=== PATIENT | male | born 1975 | race African-American/Black ===

== ENCOUNTER 2017-04-25 10:59 | Emergency (ER) | payer SELFPAY ==
[2017-04-25 11:07] VITALS: BP 133/77; BMI 29.5
--- NOTE | 2017-04-25 11:10 | DR.MBACK ---
HPI - Time Seen Time seen: 11:30 - PCP Primary Care Physician: corona - HPI Comment HPI Comment: LOWER BACK PAIN AND HEMATURIA TIMES 2 DAYS. NO FEVER OR DYSURIA. PAIN SIMILAR TO WHEN HE PREVIOUSLY HAD KIDNEY STONE. - Complaint Chief Complaint Doctors Comments: LOWER BACK PAIN AND BLOOD IN URINE TIMES 2 DAYS. Chief Complaint:: "PT STATES I HAD BLOOD IN MY URINE TIMES 2 DAYS AND MY LOWER BACK HAS BEEN KILLING ME " Self Treatment fo Chief Complaint: 0 HOME TX.. - Reviewed Nurses Notes Review: Yes - Source History Provided: Patient - Mode of Arrival Mode of Arrival: Ambulatory - Timing Onset of Chief Complaint: 04/23/17 - Duration Duration: Constant Duration: Days - Location Back Pain Location: Lumbar Radiation To: None - Severity Severity: Moderate - Quality Quality: Aching, Sharp - Context Onset: Spontaneous History of: None - Modifying Factors Worsened By: Twisting - Associated Signs and Symptoms Back Pain Symptoms: None Weakness: None PMH - PMH Past Medical History: No Past Surgical History: No - Family History History of Family Medical Conditions: Yes Family Medical History: Diabetes Mellitus, Hypertension - Social History Does patient currently use any type of tobacco product: Yes Have you used tobacco products in the last 12 months: Yes Type of Tobacco Use: Cigarettes How many years tobacco product used: 20 Does any household member use tobacco: No Alcohol Use: None Do you use any recreational Drugs:: No Lives With: Family Lives Where: Home - infectious screening In the last 2 months have you had wt loss of >10#?: NO Have you had fever, night sweats or hemotysis?: No Have you traveled outside the country in the last 6 months?: No Isolation: Standard ROS - Review of Systems Constitutional: No Symptoms Reported Eyes: No Symptoms Reported ENTM: No Symptoms Reported Respiratoy: No Symptoms Reported Cardiovascular: No Symptoms Reported Gastrointestinal/Abdominal: No Symptoms Reported Genitourinary: Hematuria Neurological: No Symptoms Reported Musculoskeletal: Back Pain, Back Integumentary: No Symptoms Reported Hematologic/Lymphatic: No Symptoms Reported Endocrine: No Symptoms Reported All Other Systems: Reviewed and Negative PE - Vital Signs Vitals: Temperature 97.6 F Pulse Rate 78 Respiratory Rate 22 Blood Pressure 133/77 O2 Sat by Pulse Oximetry 98 - General Limitations: No Limitations General Appearance: Alert - Head Head Exam: Normal Inspection - Eyes Eye exam: Normal Appearance - ENT ENT Exam: Normal External Ear Exam - Chest Chest Inspection: Symmetric Chest Wall Rise - Respiratory Respiratory Exam: Normal Lung Sounds Bilat Respiratory Exam: Bilateral Clear to Auscultation - Cardiovascular Cardiovascular Exam: Regular Rate, Normal Rhythm, Normal Heart Sounds - Abdominal Exam Abdominal Exam: Normal Bowel Sounds, Soft. negative: Tenderness - Rectal Rectal Exam: Deferred - Genitourinary Exam: Male: Deferred - Extremities Extremities Exam: Normal Inspection - Back Back Exam: Normal Inspection - Neurological Neurological Exam: Alert, Oriented X3 - Psychiatric Psychiatric Exam: Normal Affect, Normal Mood - Skin Skin Exam: Normal Color MDM - Differential Diagnosis Differential Diagnosis: DJD, Musculoskeletal Pain, Strain, Urolithiasis (UTI) Course - Treatment Treatment: SEE ORDERS - Education/Counseling Education/Counseling: Patient, Education Educated On: Treatment, Diagnosis ROR - Labs Reviewed Laboratory: Specimen Type Clean catch urine 04/25/17 11:31 Urine Color Pale yellow (YELLOW) 04/25/17 11:31 Urine Appearance Clear (CLEAR) 04/25/17 11:31 Urine pH 7.0 (5.0 - 8.0) 04/25/17 11:31 Ur Specific [place] 1.010 (1.000-1.030) 04/25/17 11:31 Urine Protein Negative (NEGATIVE) 04/25/17 11:31 Urine Glucose (UA) Negative (NEGATIVE) 04/25/17 11:31 Urine Ketones Negative (NEGATIVE) 04/25/17 11:31 Urine Occult Blood Negative (NEGATIVE) 04/25/17 11:31 Urine Nitrite Negative (NEGATIVE) 04/25/17 11:31 Urine Bilirubin Negative (NEGATIVE) 04/25/17 11:31 Urine Urobilinogen Normal (NORMAL) 04/25/17 11:31 Ur Leukocyte Esterase Negative (NEGATIVE) 04/25/17 11:31 Urine RBC None seen /HPF (NEGATIVE) 04/25/17 11:31 Urine WBC None seen /HPF (NEGATIVE) 04/25/17 11:31 Ur Squamous Epith Cells Rare /HPF (NEGATIVE) 04/25/17 11:31 Urine Bacteria Negative /HPF (NEGATIVE) 04/25/17 11:31 Ur Culture Indicated? No/not indicated 04/25/17 11:31 - XRAY XRAY Interpreted by: Radiologist - Diagnosis Discharge Problem: Urinary tract stones, Hematuria Back strain Qualifiers: Encounter type: initial encounter Qualified Code(s): S39.012A - Strain of muscle, fascia and tendon of lower back, initial encounter - Discharge Plan Disposition: 01 HOME, SELF-CARE Condition: Stable Prescriptions: Cyclobenzaprine HCl [FLEXERIL 10 MG *] 10 mg PO TID PRN #20 tab PRN Reason: Ibuprofen [MOTRIN TAB 600 MG *] 600 mg PO TID PRN #20 tab PRN Reason: Pain/Inflammation - Follow ups/Referrals Follow ups/Referrals: NFD,None [Primary Care Provider] - 3 days ZANE SALMON [STAFF PHYSICIAN] - 3 days - Instructions Instructions: Hematuria, Adult, Back Pain, Adult, [id number] Additional Instructions: RETURN TO ED IF WORSE.. SEE UROLOGIST FOR FOLLOW UP FOR ENLARGE PROSTATE AND BLOOD IN URINE.
[2017-04-25 11:43] LABS: BILIRUBIN,URINE NEGATIVE (NEGATIVE); BLOOD/HEMOGLOBIN,URINE NEGATIVE (NEGATIVE); GLUCOSE, URINE NEGATIVE (NEGATIVE); KETONES,URINE NEGATIVE (NEGATIVE); LEUKOCYTE ESTERASE ,URINE NEGATIVE (NEGATIVE); NITRITES,URINE NEGATIVE (NEGATIVE); PROTEIN,URINE NEGATIVE (NEGATIVE); UROBILINOGEN,URINE NORMAL (NORMAL)
[2017-04-25 11:56] LABS: APPEARANCE,URINE CLEAR (CLEAR); BACTERIA,URINE NEGATIVE /HPF (NEGATIVE); COLOR,URINE PALE YELLOW (YELLOW); RBC,URINE NONE SEEN /HPF (NEGATIVE); SQUAMOUS EPITHELIAL CELL,UR RARE /HPF (NEGATIVE)
--- NOTE | 2017-04-25 12:08 | CT ---
HISTORY: Pain Study: CT abdomen and pelvis without contrast Comparison: 03/13/2010 Technique: Multiple axial images of the abdomen and pelvis were obtained from the lung bases to the pubic symph ysis without the administration of IV contrast. Coronal and sagittal multiplanar reconstructions we re performed. Automated dose control was used. Findings: The visualized portions of the lung bases are unremarkable. The liver and spleen are normal size and density. No focal lesion is seen. The gallbladder, pancreas, and adrenals are normal . The kidneys are normal size with no hydronephrosis, renal stone, or mass. The appendix is normal . The ureters a re normal caliber. The bladder is unremarkable. The prostate gland is slightly enlarged . No pelvic mass or adenopathy is seen. Moderate degenerative changes are seen throughout the spine with no aggr essive osseous lesion. IMPRESSION: No hydronephrosis or renal stones and no CT evidence of urinary obstruction. No acute intra-abdominal abnormality. Mild prostatic enlargement. Reported By:
== END 2017-04-25 12:23 | disposition home or self-care (01) ==
LOC: ER 11:26
DX: S39.012A Strain of muscle, fascia and tendon of lower back, initial encounter (principal); R31.9 Hematuria, unspecified; Y33.XXXA Other specified events, undetermined intent, initial encounter; Y92.9 Unspecified place or not applicable
CPT/HCPCS: 74176; 81001; 99282; 99283